=== PATIENT | female | born 1995 | race Hispanic/Latino ===

== ENCOUNTER 2021-02-10 11:55 | Emergency (ER) | payer OTHER ==
[~2021-02-10] VITALS: Ht 162.6 cm; Wt 72.6 kg
--- OUTSIDE RECORDS SUMMARY | 2021-02-10 12:02 | XMS ---
PreManage Notification: CHET GLASS Security Back Shoe Worker Events No recent Security Events currently on file CRITERIA MET - [facility] - 2 Visits in 30 Days CARE PROVIDERS There are no care providers on record at this time. Nia has no Care Guidelines for this patient. Mera VISIT COUNT (12 MO.) 1 [facility] 1 [facility] NOTE: Visits indicate total known visits. ED/UCC VISIT TRACKING (12 MO.) 02/10/2021 11:56 [facility] [place] [facility] COMPLAINT: - MEDICAL CLEARANCE 02/09/2021 10:06 [facility] [place] TYPE: Emergency DIAGNOSES: - Encounter for issue of repeat prescription - anxiety INPATIENT VISIT TRACKING (12 MO.) No inpatient visits to display in this time frame [id number]
[2021-02-10] MEDS ORDERED: CITALOPRAM HBR20 MG PO (12:12)
--- NOTE | 2021-02-11 21:26 | EKG ---
[facility] [address] [place], [place] [address] Signed Normal sinus rhythm Left posterior fascicular block Cannot rule out Inferior infarct , age undetermined Abnormal ECG No previous ECGs available Confirmed by BETTY CROOKS DO ([id number]) on 02/11/2021 9:26:37 PM Electronically Signed By: BETTY CROOKS DO 02/11/212125 PATIENT NAME: CHET GLASS Electrocardiogram DATE OF : [birth year] PHYSICIAN: BETTY CROOKS DO REPORT #: [id number] REPORT IS CONFIDENTIAL AND NOT TO BE RELEASED WITHOUT AUTHORIZATION
== END 2021-02-10 20:20 | disposition short-term general hospital (02) ==
LOC: ED 11:55
DX: Z00.8 Encounter for other general examination (principal); Z20.822 Contact with and (suspected) exposure to COVID-19; Y90.0 Blood alcohol level of less than 20 mg/100 ml
CPT/HCPCS: 80053; 81001; 84443; 84703; 85025; 93005; 93010; 99284-25; C9803; G0480; U0003

== ENCOUNTER 2021-03-10 03:28 | Emergency (ER) | payer OTHER ==
[~2021-03-10] VITALS: Ht 162.6 cm; Wt 78.9 kg
[~2021-03-10 03:28] MED LIST: CITALOPRAM HBR20 MG PO
--- OUTSIDE RECORDS SUMMARY | 2021-03-10 03:36 | XMS ---
PreManage Notification: CHET GLASS Security Rubber Gasket Inspector Trimmer Events No recent Security Events currently on file CRITERIA MET - [facility] - Visits in 30 Days CARE PROVIDERS PHILOMENA MULTANI Physician Photoengraving Proofer Apprentice 02/11/2021-Current PHONE: [phone] Nia has no Care Guidelines for this patient. Mera VISIT COUNT (12 MO.) [address] TOTAL 3 NOTE: Visits indicate total known visits. ED/UCC VISIT TRACKING (12 MO.) 03/10/2021 03:29 [facility] [place] TYPE: Emergency COMPLAINT: - ANXIETY 02/10/2021 11:56 [facility] [place] TYPE: Emergency COMPLAINT: - MEDICAL CLEARANCE DIAGNOSES: - Encounter for other general examination - Blood alcohol level of less than 20 mg/100 ml 02/09/2021 10:06 [facility] [place] TYPE: Emergency DIAGNOSES: - Encounter for issue of repeat prescription - anxiety INPATIENT VISIT TRACKING (12 MO.) No inpatient visits to display in this time frame [id number]
[2021-03-10] MEDS ORDERED: HYDROXYZINE HCL50 MG PO (03:43)
[2021-03-10] MEDS ORDERED: OLANZAPINE10 MG PO (03:44)
== END 2021-03-10 04:01 | disposition home or self-care (01) ==
LOC: ED 03:28
DX: F41.9 Anxiety disorder, unspecified (principal); E11.9 Type 2 diabetes mellitus without complications; Z79.899 Other long term (current) drug therapy
CPT/HCPCS: 99283

== ENCOUNTER 2021-09-02 06:47 | Emergency (ER) | payer OTHER ==
[~2021-09-02] VITALS: Ht 162.6 cm; Wt 78.9 kg
[~2021-09-02 06:47] MED LIST changes: +HYDROXYZINE HCL50 MG PO; +OLANZAPINE10 MG PO
== END 2021-09-02 08:20 | disposition home or self-care (01) ==
LOC: ED 06:47
DX: S83.005A Unspecified dislocation of left patella, initial encounter (principal); X58.XXXA Exposure to other specified factors, initial encounter; E11.9 Type 2 diabetes mellitus without complications
CPT/HCPCS: 73560; 99283-25

== ENCOUNTER 2021-10-10 03:58 | Emergency (ER) | payer OTHER ==
[~2021-10-10] VITALS: Ht 162.6 cm; Wt 73.5 kg
[~2021-10-10 03:58] MED LIST changes: +ZYPREXA10 MG PO
--- OUTSIDE RECORDS SUMMARY | 2021-10-10 04:01 | XMS ---
PreManage Notification: CHET GLASS Security It Integration Architect Events No recent Security Events currently on file CRITERIA MET - [facility] - 2 Visits in 30 Days CARE PROVIDERS PHILOMENA MULTANI Physician Help Desk Engineer 02/11/2021-Current PHONE: [phone] Nia has no Care Guidelines for this patient. Mera VISIT COUNT (12 MO.) [address] TOTAL 7 NOTE: Visits indicate total known visits. ED/C VISIT TRACKING (12 MO.) 10/10/2021 03:58 [facility] [place] TYPE: Emergency COMPLAINT: - FALL 10/09/2021 08:24 [facility] [place] TYPE: Emergency DIAGNOSES: - Manic episode without psychotic symptoms, unspecified - MENTAL HEALTH 10/08/2021 11:37 [facility] [place] TYPE: Emergency COMPLAINT: - PANIC ATTACK DIAGNOSES: - Type 2 diabetes mellitus without complications - Bipolar disorder, unspecified - Anxiety disorder, unspecified 09/02/2021 06:48 [facility] [place] TYPE: Emergency COMPLAINT: - L KNEE PAIN DIAGNOSES: - Pain in left knee - Exposure to other specified factors, initial encounter - Type 2 diabetes mellitus without complications - Unspecified dislocation of left patella, initial encounter 03/10/2021 03:29 [facility] [place] TYPE: Emergency COMPLAINT: - ANXIETY DIAGNOSES: - Other long-term (current) drug therapy - Type 2 diabetes mellitus without complications - Anxiety disorder, unspecified 02/10/2021 11:[address] [facility] [place] TYPE: Emergency COMPLAINT: - MEDICAL CLEARANCE DIAGNOSES: - Encounter for other general examination - Blood alcohol level of less than 20 mg/100 ml - Impulsiveness - Unspecified behavioral syndromes associated with physiological disturbances and physical factors - Other abnormal findings in urine - Post-traumatic stress disorder, unspecified - Encounter for other administrative examinations - Left posterior fascicular block - Other long-term (current) drug therapy 02/09/2021 10:06 [facility] [place] TYPE: Emergency DIAGNOSES: - Encounter for issue of repeat prescription - anxiety INPATIENT VISIT TRACKING (12 MO.) No inpatient visits to display in this time frame [id number]
== END 2021-10-10 06:10 | disposition home or self-care (01) ==
LOC: ED 03:58
DX: S93.401A Sprain of unspecified ligament of right ankle, initial encounter (principal); E11.9 Type 2 diabetes mellitus without complications
CPT/HCPCS: 73610; G0480

== ENCOUNTER 2021-10-10 16:16 | Emergency (ER) | payer OTHER ==
[~2021-10-10] VITALS: Ht 162.6 cm; Wt 73.5 kg
--- OUTSIDE RECORDS SUMMARY | 2021-10-10 16:18 | XMS ---
PreManage Notification: CHET GLASS Security Termite Renewal Inspector Events No recent Security Events currently on file CRITERIA MET - [facility] - 2 Visits in 30 Days CARE PROVIDERS PHILOMENA MULTANI Physician Materials Scheduler 02/11/2021-Current PHONE: [phone] Nia has no Care Guidelines for this patient. Mera VISIT COUNT (12 MO.) [address] TOTAL 8 NOTE: Visits indicate total known visits. ED/UCC VISIT TRACKING (12 MO.) 10/10/2021 16:16 [facility] [place] TYPE: Emergency COMPLAINT: - ANXIETY 10/10/2021 03:58 [facility] [place] TYPE: Emergency COMPLAINT: - FALL 10/09/2021 08:24 [facility] [place] TYPE: Emergency DIAGNOSES: - Manic episode without psychotic symptoms, unspecified - MENTAL HEALTH 10/08/2021 11:37 [facility] [place] TYPE: Emergency COMPLAINT: - PANIC ATTACK DIAGNOSES: - Type 2 diabetes mellitus without complications - Bipolar disorder, unspecified - Anxiety disorder, unspecified 09/02/2021 06:[address] [facility] [place] TYPE: Emergency COMPLAINT: - L KNEE PAIN DIAGNOSES: - Pain in left knee - Exposure to other specified factors, initial encounter - Type 2 diabetes mellitus without complications - Unspecified dislocation of left patella, initial encounter 03/10/2021 03:[address] [facility] [place] TYPE: Emergency COMPLAINT: - ANXIETY DIAGNOSES: - Other meterman (current) drug therapy - Type 2 diabetes mellitus without complications - Anxiety disorder, unspecified 02/10/2021 11:[address] [facility] [place] DonyaSonya Whitman [place] TYPE: Emergency COMPLAINT: - MEDICAL CLEARANCE DIAGNOSES: - Encounter for other general examination - Blood alcohol level of less than 20 mg/100 ml - Impulsiveness - Unspecified behavioral syndromes associated with physiological disturbances and physical factors - Other abnormal findings in urine - Post-traumatic stress disorder, unspecified - Encounter for other administrative examinations - Left posterior fascicular block - Other meterman (current) drug therapy 02/09/2021 10:06 [facility] [place] TYPE: Emergency DIAGNOSES: - Encounter for issue of repeat prescription - anxiety INPATIENT VISIT TRACKING (12 MO.) No inpatient visits to display in this time frame [id number]
== END 2021-10-10 16:57 | disposition home or self-care (01) ==
LOC: ED 16:16
DX: F31.9 Bipolar disorder, unspecified (principal); E11.9 Type 2 diabetes mellitus without complications; Z79.899 Other long term (current) drug therapy
CPT/HCPCS: 99283

== ENCOUNTER 2021-10-15 13:26 | Emergency (ER) | payer OTHER ==
[~2021-10-15] VITALS: Ht 162.6 cm; Wt 74.8 kg
--- OUTSIDE RECORDS SUMMARY | 2021-10-15 13:28 | XMS ---
PreManage Notification: CHET GLASS Security Roll Line Operator Events No recent Security Events currently on file CRITERIA MET - 6 ED Visits in [address] - [facility] - 2 Visits in 30 Days CARE PROVIDERS PHILOMENA MULTANI Physician Tractor Operator Laser Leveling 02/11/2021-Current PHONE: [phone] Nia has no Care Guidelines for this patient. Mera VISIT COUNT (12 MO.) [address] TOTAL 9 NOTE: Visits indicate total known visits. ED/UCC VISIT TRACKING (12 MO.) 10/15/2021 13:26 [facility] [place] TYPE: Emergency COMPLAINT: - MEDICAL CLEARANCE 10/10/2021 16:16 [facility] [place] TYPE: Emergency COMPLAINT: - ANXIETY DIAGNOSES: - Type 2 diabetes mellitus without complications - Other usp (current) drug therapy - Bipolar disorder, unspecified - Anxiety disorder, unspecified 10/10/2021 03:58 [facility] [place] TYPE: Emergency COMPLAINT: - FALL DIAGNOSES: - Pain in right ankle and joints of right foot - Sprain of unspecified ligament of right ankle, initial encounter - Type 2 diabetes mellitus without complications 10/09/2021 08:24 [facility] [place] TYPE: Emergency DIAGNOSES: - Manic episode without psychotic symptoms, unspecified - MENTAL HEALTH 10/08/2021 11:37 [facility] [place] TYPE: Emergency COMPLAINT: - PANIC ATTACK DIAGNOSES: - Type 2 diabetes mellitus without complications - Bipolar disorder, unspecified - Anxiety disorder, unspecified 09/02/2021 06:48 [facility] [place] TYPE: Emergency COMPLAINT: - L KNEE PAIN DIAGNOSES: - Pain in left knee - Exposure to other specified factors, initial encounter - Type 2 diabetes mellitus without complications - Unspecified dislocation of left patella, initial encounter 03/10/2021 03:29 [facility] [place] TYPE: Emergency COMPLAINT: - ANXIETY DIAGNOSES: - Other usp (current) drug therapy - Type 2 diabetes mellitus without complications - Anxiety disorder, unspecified 02/10/2021 11:56 [facility] [place] TYPE: Emergency [...] - Left posterior fascicular block - Other usp (current) drug therapy 02/09/2021 10:06 [facility] [place] TYPE: Emergency DIAGNOSES: - Encounter for issue of repeat prescription - anxiety INPATIENT VISIT TRACKING (12 MO.) No inpatient visits to display in this time frame [email or web address]
[2021-10-15] MEDS ORDERED: HYDROXYZINE HCL10 MG PO (15:13)
[2021-10-15] MEDS ORDERED: ZYPREXA10 MG PO (15:15)
== END 2021-10-16 12:22 | disposition home or self-care (01) ==
LOC: ED 13:26
DX: F31.9 Bipolar disorder, unspecified (principal); E11.9 Type 2 diabetes mellitus without complications; Z79.899 Other long term (current) drug therapy; Z20.822 Contact with and (suspected) exposure to COVID-19
CPT/HCPCS: 36415; 80053; 81001; 84443; 84703; 85025; 99284; A9270; G0480; U0003

== ENCOUNTER 2023-03-22 14:19 | Emergency (ER) | payer OTHER ==
[~2023-03-22] VITALS: Ht 162.6 cm; Wt 71.7 kg
--- OUTSIDE RECORDS SUMMARY | ~2023-03-22 | XMS | Continuity of Care Document ---
Demographics + + + | Address | [address] | | | [place] [address] | + + + | Preferred Language | Unknown | + + + | Marital Status | Never | + + + | Latter-Day Affiliation | Unknown | + + + | Race | Unknown | + + + | Ethnic Group | Unknown | + + + Author + + + | Author | [facility] | + + + | Organization | [facility] | + + + | Address | [address] | | | [place] [address] | + + + | Phone | | + + + Care Team Providers + + + + | Care Take Out Waiter Name | Role | Phone | + [...] 00:00 | quetiapine 25 MG Oral | [facility] | | | Tablet | | + + + + | 2023-01-03 00:00 | QUEtiapine Fumarate 25 MG | [facility] | | | Oral Tablet | | + + + + Problems + + + + | date | description | facility | + + + + | 2022-12-22 00:00 | Lumbago with sciatica | [facility] | | | (disorder) | | + + + + | 2022-12-22 00:00 | Scoliosis deformity of | [facility] | | | spine (disorder) | | + + + + | 2022-12-22 00:00 | SCIATICA | [facility] | | | | | + + + + | 2022-12-22 00:00 | SCOLIOSIS,OTHER | [facility] | | | | | + + + + | 2022-12-22 00:00 | Scoliosis | [facility] | | | | | + + + + | 2022-12-22 00:00 | Lumbago with Sciatica | [facility] | | | | | + + + + Procedures + + + + | date | description | facility | + + + + | 2023-02-15 00:00 | Collection/Conveyance | [facility] | | | Screening Pap | | [...] | | | | | | | Alexis [facility]. | | | | + + + [...] | | | | | | | [facility] | | | | + + + +--------+ + + | | 2023-02-15 | [facility] | 10.8 | (missing) | (missing) | | BUN/CREAT.RA | 15:51 | MEDICAL | | | | | HUNTER | | [facility]ene [facility] | | | | + + + +--------+ + + | GFR | 2023-02-15 | [facility] | 115 | ml/min | (missing) | | ESTIMATION | 15:51 | MEDICAL | | | | | | | D[facility]ene [facility] | | | | + + + [...] Detected | | | | | | [facility] | | | | + + + + + + + | N. | 2023-02-15 | [facility] | None | (missing) | (missing) | | GONORRHEA | 00:00 | MEDICAL | Detected | | | | | | GROUP [...] | | | | | | | Piotr [facility]. | | | | + + + +--------+--------+ + | RBC | 2023-02-15 | [facility] | 4.61 | M/ul | (missing) | | | 15:51 | MEDICAL | | | | | | | Piotr [facility]. | | | | + + + +--------+--------+ + Social History + + + + | date | description | facility | + + + + | 2022-12-22 00:00 | Unknown if ever smoked | [facility] | | | | | + + + + | 2022-12-22 00:00 | [facility]-sm[facility] (finding) | [facility] | | | | | + + + + | 2023-02-15 00:00 | Unknown if ever smoked | [facility] | | | | | + + + + | 2023-02-15 00:00 | Ex-smoker (finding) | [facility] | | | | | + + + + | 2023-02-23 00:00 | Unknown if ever smoked | [facility] | | | | | + + + + | 2023-02-23 00:00 | Ex-smoker (finding) | [facility] | | | | | + + + + Vital Signs + + + + + | date | measurement | value | units | + + + + + | 2022-12-22 00:00 | BMI | 28.4 | 1 | + + + + + | 2022-12-22 00:00 | BP_diastolic | 76 | mmHg | + + + + + | 2022-12-22 00:00 | BP_systolic | 120 | mmHg | + + + + + | 2022-12-22 00:00 | BSA | 1.8 | 1 | + + + + + | 2022-12-22 00:00 | heart_rate | 56 | /min | + + + + + | 2022-12-22 00:00 | height_metric | 162.56 | cm | + + + + + | 2022-12-22 00:00 | height_standard | 64 | in | + + + + + | 2022-12-22 00:00 | o2_saturation | 98 | % | + + + + + | 2022-12-22 00:00 | respiration_rate | 16 | /min | + + + + + | 2022-12-22 00:00 | temperature_metric | 36.61 | C | | | | | | + + + + + | 2022-12-22 00:00 | | 97.9 | F | | | temperature_standar | | | | | d | | | + + + + + | 2022-12-22 00:00 | weight_metric | 75.01 | kg | + + + + + | 2022-12-22 00:00 | weight_standard | 165.38 | lb | + + + + + | [...]
[~2023-03-22 14:19] MED LIST changes: +CAPLYTA21 MG PO; +HYDROXYZINE HCL10 MG PO; +LURASIDONE HCL20 MG PO; +QUETIAPINE FUM300 MG PO; +QUETIAPINE FUMA25 MG PO
[2023-03-22] MEDS ORDERED: TRAZODONE HCL50 MG PO (14:47)
[2023-03-22] MEDS ORDERED: VISTARIL25 MG PO (14:47)
[2023-03-22 15:02] VITALS: BP 141/92
== END 2023-03-22 15:05 | disposition home or self-care (01) ==
LOC: ED 14:19
DX: F31.9 Bipolar disorder, unspecified (principal); E11.9 Type 2 diabetes mellitus without complications; Z79.899 Other long term (current) drug therapy
CPT/HCPCS: 99283; Q0177

== ENCOUNTER 2023-03-23 14:10 | Emergency (ER) | payer OTHER ==
[~2023-03-23] VITALS: Ht 162.6 cm; Wt 71.9 kg
--- OUTSIDE RECORDS SUMMARY | ~2023-03-23 | XMS | Continuity of Care Document ---
Demographics + + + | Address | [address] | | | [place] [address] | + + + | Preferred Language | Unknown | + + + | Marital Status | Never | + + + | Amish Affiliation | Unknown | + + + | Race | Unknown | + + + | Ethnic Group | or | + + + Author + + + | Author | [facility] | + + + | Organization | [facility] | + + + | Address | [address] | | | [place] [address] | + + + | Phone | | + + + Care Team Providers + + + + | Care Computer Assembler Name | Role | Phone | + + + + Unavailable | Unavailable | + + + + Unavailable | Unavailable | + + + + Allergies No information. Encounters No information. Functional Status No information. Immunizations No information. Medications + + + + | date | description | facility | + + + + | 2023-01-03 00:00 | quetiapine 25 MG Oral | [facility] | | | Tablet | | + + + + | 2023-01-03 00:00 | QUEtiapine Fumarate 25 MG | [facility] | | | Oral Tablet | | + + + + Problems No information. Procedures + + + + | date | description | facility | + + + + | 2023-02-15 00:00 | Collection/Conveyance | [facility] | | | Screening Pap | | + + + + Results/Labs +--------+--------+ +---------+--------+---------+ | test | date | facility | value | unit | notes | +--------+--------+ +---------+--------+---------+ + + | TREPONEMAL AB TOT | + + + + + + + + + | TREPONEMAL | 2023-02-15 | [facility] | | (missing) | (missing) | | AB TOT | 15:51 | [facility] | NON-REACTIVE | | | | | | [facility] | | | | + + + + + + + + + | LIPID PANEL | + + + + + +--------+ + + | VLDL | 2023-02-15 | [facility] | 32 | mg/dL | (missing) | | | 15:51 | [facility] | | | | + + + +--------+ + + | LDL | 2023-02-15 | [facility] | 107 | mg/dL | (missing) | | | 15:51 | [facility] | | | | | | [facility] | | | | + + + +--------+ + + | HDL | 2023-02-15 | [facility] | 45.7 | mg/dL | (missing) | | | 15:51 | [facility] | | | | | | [facility] | | | | + + + +--------+ + + | CHOLESTEROL | 2023-02-15 | [facility] | 185 | mg/dL | (missing) | | | 15:51 | [facility] | | | | | | | [facility] | | | | + + + +--------+ + + | | 2023-02-15 | [facility] | 162 | mg/dL | (missing) | | TRIGLYCERIDE | 15:51 | [facility] | | | | | S | | [facility] | | | | + + + +--------+ + + | NON-HDL | 2023-02-15 | [facility] | 139 | mg/dL | (missing) | | CHOL | 15:51 | [facility] | | | | | | | [facility] | | | | + + + +--------+ + + | CHOL/HDL | 2023-02-15 | [facility] | 4.0 | (missing) | (missing) | | | 15:51 | [facility] | | | | | | [facility] | | | | + + + +--------+ + + + + | FREE T4/TSH | + + + + + +---------+ + + | TSH, 3rd | 2023-02-15 | [facility] | 1.290 | uIU/ml | (missing) | | GEN. | 15:51 | [facility] | | | | | | | [facility] | | | | + + + +---------+ + + | FREE T4 | 2023-02-15 | [facility] | 1.01 | ng/dl | (missing) | | | 15:51 | [facility] | | | | | | | [facility] | | | | + + + +---------+ + + + + | COMPREHENSIVE METABOLIC PANEL | + + + + + +--------+ + + | GLOBULIN | 2023-02-15 | [facility] | 2.8 | g/dl | (missing) | | | 15:51 | [facility] | | | | | | | [facility] | | | | + + + +--------+ + + | ALKALINE | 2023-02-15 | [facility] | 69 | U/L | (missing) | | PHOS | 15:51 | [facility] | | | | | | | [facility] | | | | + + + +--------+ + + | ALT(SGPT) | 2023-02-15 | [facility] | 15 | U/L | (missing) | | | 15:51 | [facility] | | | | | | | [facility] | | | | + + + +--------+ + + | ALBUMIN | 2023-02-15 | [facility] | 4.7 | g/dl | (missing) | | | 15:51 | [facility] | | | | | | | [facility] | | | | + + + +--------+ + + | A/G RATIO | 2023-02-15 | [facility] | 1.7 | (missing) | (missing) | | | 15:51 | [facility] | | | | | | | [facility] | | | | + + + +--------+ + + | CALCIUM | 2023-02-15 | [facility] | 9.9 | mg/dL | (missing) | | | 15:51 | [facility] | | | | | | | [facility] | | | | + + + +--------+ + + | ANION GAP | 2023-02-15 | [facility] | 12.8 | (missing) | (missing) | | | 15:51 | [facility] | | | | | | | [facility] | | | | + + + +--------+ + + | AST(SGOT) | 2023-02-15 | [facility] | 15 | U/L | (missing) | | | 15:51 | [facility] | | | | | | | [facility] | | | | + + + +--------+ + + | BILIRUBIN, | 2023-02-15 | [facility] | 0.25 | mg/dL | (missing) | | TOTAL | 15:51 | [facility] | | | | | | | [facility] | | | | + + + +--------+ + + | CARBON | 2023-02-15 | [facility] | 25 | meq/L | (missing) | | DIOXIDE | 15:51 | [facility] | | | | | | | [facility] | | | | + + + +--------+ + + | CHLORIDE | 2023-02-15 | [facility] | 106 | meq/L | (missing) | | | 15:51 | [facility] | | | | | | | [facility] | | | | + + + +--------+ + + | CREATININE, | 2023-02-15 | [facility] | 0.74 | mg/dL | (missing) | | SERUM | 15:51 | [facility] | | | | | | | [facility] | | | | + + + +--------+ + + | GLUCOSE | 2023-02-15 | [facility] | 97 | mg/dL | (missing) | | | 15:51 | [facility] | | | | | | | [facility] | | | | + + + +--------+ + + | POTASSIUM | 2023-02-15 | [facility] | 3.8 | meq/L | (missing) | | | 15:51 | [facility] | | | | | | | [facility] | | | | + + + +--------+ + + | PROTEIN | 2023-02-15 | [facility] | 7.5 | g/dL | (missing) | | | 15:51 | [facility] | | | | | | | [facility] | | | | + + + +--------+ + + | SODIUM | 2023-02-15 | [facility] | 140 | meq/L | (missing) | | | 15:51 | [facility] | | | | | | | [facility] | | | | + + + +--------+ + + | UREA | 2023-02-15 | [facility] | 8 | mg/dL | (missing) | | NITROGEN | 15:51 | [facility] | | | | | | | [facility] | | | | + + + +--------+ + + | | 2023-02-15 | [facility] | 10.8 | (missing) | (missing) | | BUN/CREAT.RA | 15:51 | [facility] | | | | | [facility] | | [facility] | | | | + + + +--------+ + + | GFR | 2023-02-15 | [facility] | 115 | ml/min | (missing) | | ESTIMATION | 15:51 | [facility] | | | | | | | [facility] | | | | + + + +--------+ + + + + | IRON AND TOTAL IRON BINDING | + + + + + + +---------+ + | IRON | 2023-02-15 | [facility] | 87.01 | ug/dL | (missing) | | | 15:51 | [facility] | | | | | | | [facility] | | | | + + + + +---------+ + | TIBC | 2023-02-15 | [facility] | 457 | ug/dL | (missing) | | | 15:51 | [facility] | | | | | | | [facility] | | | | + + + + +---------+ + | % | 2023-02-15 | [facility] | 19.0 | % | (missing) | | SATURATION | 15:51 | [facility] | | | | | | | [facility] | | | | + + + + +---------+ + | TRANSFERRIN | 2023-02-15 | [facility] | 326.64 | mg/dL | (missing) | | | 15:51 | [facility] | | | | | | | [facility] | | | | + + + + +---------+ + + + | VITAMIN D 25-OH | + + + + + +------+---------+ + | VITAMIN D | 2023-02-15 | [facility] | 26 | ng/mL | (missing) | | 25-OH | 15:51 | [facility] | | | | | | | [facility] | | | | + + + +------+---------+ + + + | N.KENRICK./CHLAMYDIA/TRICHOMONAS R | + + + + + + + + + | CHLAMYDIA | 2023-02-15 | [facility] | None | (missing) | (missing) | | | 00:00 | [facility] | Detected | | | | | | [facility] | | | | + + + + + + + | N. | 2023-02-15 | [facility] | None | (missing) | (missing) | | GONORRHEA | 00:00 | [facility] | Detected | | | | | | , [facility] | | | | + + + + + + + | TESTING | 2023-02-15 | [facility] | See Note | (missing) | (missing) | | COMMENT | 00:00 | [facility] | | | | | | | [facility] | | | | + + + + + + + | TRICHOMONAS | 2023-02-15 | [facility] | None | (missing) | (missing) | | | 00:00 | [facility] | Detected | | | | | | [facility] | | | | + + + + + + + + + | HIV 1+2 Ab/Ag | + + + + + + + + + | HIV 1+2 | 2023-02-15 | [facility] | | (missing) | (missing) | | Ab/Ag | 15:51 | MED[facility] | NON-REACTIVE | | | | | | [facility] | | | | + + + + + + + +-------+ | CBC | +-------+ + + + +--------+--------+ + | HEMOGLOBIN | 2023-02-15 | [facility] | 13.9 | g/dl | (missing) | | | 15:51 | [facility] | | | | | | | [facility] | | | | + + + +--------+--------+ + | RDW | 2023-02-15 | [facility] | 12.3 | % | (missing) | | | 15:51 | [facility] | | | | | | | [facility] | | | | + + + +--------+--------+ + | HEMATOCRIT | 2023-02-15 | [facility] | 41.4 | % | (missing) | | | 15:51 | [facility] | | | | | | | [facility] | | | | + + + +--------+--------+ + | MONOCYTES | 2023-02-15 | [facility] | 5.7 | % | (missing) | | | 15:51 | [facility] | | | | | | | [facility] | | | | + + + +--------+--------+ + | WBC | 2023-02-15 | [facility] | 8.4 | K/ul | (missing) | | | 15:51 | [facility] | | | | | | | [facility] | | | | + + + +--------+--------+ + | BASOPHILS | 2023-02-15 | [facility] | 0.2 | % | (missing) | | | 15:51 | [facility] | | | | | | | [facility] | | | | + + + +--------+--------+ + | EOSINOPHILS | 2023-02-15 | [facility] | 0.0 | % | (missing) | | | 15:51 | [facility] | | | | | | | [facility] | | | | + + + +--------+--------+ + | LYMPHOCYTES | 2023-02-15 | [facility] | 29.9 | % | (missing) | | | 15:51 | [facility] | | | | | | | [facility] | | | | + + + +--------+--------+ + | NEUTROPHILS | 2023-02-15 | [facility] | 64.2 | % | (missing) | | | 15:51 | [facility] | | | | | | | [facility] | | | | + + + +--------+--------+ + | PLATELET | 2023-02-15 | [facility] | 281 | K/ul | (missing) | | COUNT | 15:51 | [facility] | | | | | | | [facility] | | | | + + + +--------+--------+ + | MCH | 2023-02-15 | [facility] | 30 | pg | (missing) | | | 15:51 | [facility] | | | | | | | [facility] | | | | + + + +--------+--------+ + | MCHC | 2023-02-15 | [facility] | 34 | g/dL | (missing) | | | 15:51 | [facility] | | | | | | | [facility] | | | | + + + +--------+--------+ + | MCV | 2023-02-15 | [facility] | 89.9 | fl | (missing) | | | 15:51 | [facility] | | | | | | | [facility] | | | | + + + +--------+--------+ + | RBC | 2023-02-15 | [facility] | 4.61 | M/ul | (missing) | | | 15:51 | [facility] | | | | | | | [facility] | | | | + + + +--------+--------+ + Social History + + + + | date | description | facility | + + + + | 2023-02-15 00:00 | Unknown if ever smoked | [facility] | | | | | + + + + | 2023-02-15 00:00 | Ex-smoker (finding) | [facility] | | | | | + + + + | 2023-02-23 00:00 | Unknown if ever smoked | [facility] | | | | | + + + + | 2023-02-23 00:00 | Ex-smoker (finding) | [facility] | | | | | + + + + Vital Signs + + + + + | date | measurement | value | units | + + + + + | 2023-02-15 00:00 | BMI | 29 | 1 | + + + + + | 2023-02-15 00:00 | BP_diastolic | 80 | mmHg | + + + + + | 2023-02-15 00:00 | BP_systolic | 118 | mmHg | + + + + + | 2023-02-15 00:00 | BSA | 1.8 | 1 | + + + + + | 2023-02-15 00:00 | Pain_Level | 0 | 1 | + + + + + | 2023-02-15 00:00 | heart_rate | 1|1| | completed | + + + + + | 2023-02-15 00:00 | heart_rate | 78 | /min | + + + + + | 2023-02-15 00:00 | height_metric | 162.56 | cm | + + + + + | 2023-02-15 00:00 | height_standard | 64 | in | + + + + + | 2023-02-15 00:00 | o2_saturation | 99 | % | + + + + + | 2023-02-15 00:00 | respiration_rate | 17 | /min | + + + + + | 2023-02-15 00:00 | temperature_metric | 36.56 | C | | | | | | + + + + + | 2023-02-15 00:00 | | 97.8 | F | | | temperature_standar | | | | | d | | | + + + + + | 2023-02-15 00:00 | weight_metric | 76.66 | kg | + + + + + | 2023-02-15 00:00 | weight_standard | 169 | lb | + + + + +"
[~2023-03-23 14:10] MED LIST changes: +TRAZODONE HCL50 MG PO; +VISTARIL25 MG PO
--- OUTSIDE RECORDS SUMMARY | 2023-03-23 14:18 | XMS ---
PreManage Notification: CHET GLASS Security Vision Mixer Events No recent Security Events currently on file CRITERIA MET - [facility] - 2 Visits in 30 Days CARE PROVIDERS FABIO NORTON Community Health Worker 11/04/2021-Current PHONE: [phone] PHILOMENA MULTANI Physician Delinquency Counselor 02/11/2021-Current PHONE: Unknown -Nathaniel- Dentist: Yardage Control Operator [facility] PHONE: [phone] Cassi Dickey Nurse Practitioner: Family Current PHONE: [phone] Nia has no Care Guidelines for this patient. Mera VISIT COUNT (12 MO.) 3 JES[facility]S Hi ) TOTAL 4 NOTE: Visits indicate total known visits. ED/UCC VISIT TRACKING (12 MO.) 03/23/2023 14:11 [facility] [place] TYPE: Emergency COMPLAINT: - MEDICAL CLEARANCE 03/22/2023 14:20 [facility] TYPE: Emergency COMPLAINT: - UNABLE TO SLEEP, ANXIETY 10/09/2022 12:54 [facility] TYPE: Emergency COMPLAINT: - SUICIDAL IDEATIONS DIAGNOSES: - Bipolar disorder, unspecified - Contact with and (suspected) exposure to COVID-19 - Other emt intermediate (current) drug therapy - Suicidal ideations - Type 2 diabetes mellitus without complications 09/29/2022 23:26 Demetrius LEONARD [place] ([facility]) TYPE: Emergency DIAGNOSES: - Acute stress reaction - Anxiety INPATIENT VISIT TRACKING (12 MO.) 10/11/2022 09:48 [facility] TYPE: Behavioral Health DIAGNOSES: - Bipolar disorder, unspecified [id number]
[2023-03-23 14:45] LABS: BASOPHILS 0.3 % (0-2); HEMOGLOBIN 12.9 g/dL (12.0-18.0); LYMPHOCYTES 19.3 % (24-44); MCH 29.2 (27-36); MCHC 33.1 g/dl (30-36); MCV 88.1 fl (81-99); MONOCYTES 8.3 % (0-12); NEUTROPHILS 72.1 % (39-80); PLATELET COUNT 273 K/uL (140-440); RBC 4.43 M/ul (4.3-5.7); RDW 12.7 (10.5-15.0)
[2023-03-23 15:07] LABS: BILIRUBIN, URINE NEGATIVE (negative); BLOOD/HGB, URINE SMALL (Negative); KETONE, URINE SMALL (Negative); LEUK ESTERASE, URINE NEGATIVE (negative); NITRITE, URINE NEGATIVE (negative)
[2023-03-23 15:10] LABS: AMPHETAMINES, UR NEGATIVE (NEGATIVE); BARBITURATES, UR NEGATIVE (NEGATIVE); BENZODIAZEPINES, UR NEGATIVE (NEGATIVE); BUPRENORPHINE,UR NEGATIVE (NEGATIVE); COCAINE, UR NEGATIVE (NEGATIVE); MARIJUANA (THC), UR NEGATIVE (NEGATIVE); MDMA, UR NEGATIVE (NEGATIVE); METHADONE, UR NEGATIVE (NEGATIVE); METHAMPHETAMINE, UR NEGATIVE (NEGATIVE); OPIATES, UR NEGATIVE (NEGATIVE); OXYCODONE, UR NEGATIVE (NEGATIVE); PHENCYCLIDINE, UR NEGATIVE (NEGATIVE); TRICYCLIC ANTIDEPRESSANT, UR NEGATIVE (NEGATIVE)
[2023-03-23 15:10] LABS: ACETAMINOPHEN 0 ug/mL (10-30); ALBUMIN 4.4 g/dL (3.4-5.0); ALBUMIN/GLOBULIN RATIO 1.29 (1.1-2.4); ALCOHOL, MEDICAL <3 ng/dL (<3); ALKALINE PHOSPHATASE 73 U/L (46-116); ALT (SGPT) 27 U/L (14-59); ANION GAP 14.2 (7-21); AST (SGOT) 37 U/L (15-37); BILIRUBIN, TOTAL 0.5 ng/dL (0.2-1.0); BUN/CREATININE RATIO 7.86 (6.0-28.6); CALCIUM 8.8 mg/dL (8.5-10.1); CARBON DIOXIDE 26 mmol/L (21-32); CHLORIDE 101 mmol/L (98-107); CREATININE, SERUM 0.89 mg/dL (0.55-1.02); GLOMERULAR FILTRATION RATE,EST 92 mL/min (>60); POTASSIUM 3.2 mmol/L (3.5-5.1); PROTEIN, TOTAL 7.8 g/dL (6.4-8.2); SALICYLATE 0.7 mg/dL (2.8-20.0); TSH, 3RD GENERATION 1.048 uIU/mL (0.358-3.740); UREA NITROGEN 7 mg/dL (7-18)
[2023-03-23 15:15] LABS: BACTERIA, URINE NONE SEEN /hpf (negative); CASTS, URINE NONE SEEN \\lpf; COLLECTION TYPE, URINE CLEAN CATCH; CRYSTALS, URINE NONE SEEN (0-1+); EPITHELIAL CELLS, URINE 0 /lpf (0-1+); RED BLOOD CELLS, URINE 0-1 /hpf (0-5); REFLEX CULTURE, URINE No (No)
[2023-03-23 16:00] VITALS: BP 140/80
== END 2023-03-23 16:00 | disposition home or self-care (01) ==
LOC: ED 14:10
PROVIDERS: Emergency Medicine
DX: F31.9 Bipolar disorder, unspecified (principal); Z79.899 Other long term (current) drug therapy
CPT/HCPCS: 36415; 80053; 80307; 81001; 84443; 84703; 85025; G0480

== ENCOUNTER 2023-10-19 10:12 | Emergency (ER) | payer OTHER ==
[~2023-10-19] VITALS: Ht 162.6 cm; Wt 83.3 kg
[2023-10-19] MEDS ORDERED: QUETIAPINE FUM400 MG PO (10:31)
[2023-10-19] MEDS ORDERED: OLANZAPINE10 MG PO (10:31)
[2023-10-19] MEDS ORDERED: HYDROXYZINE HCL50 MG PO (10:31)
[2023-10-19] MEDS ORDERED: PALIPERIDONE ER9 MG PO (10:31)
[2023-10-19 10:50] VITALS: BP 142/96
== END 2023-10-19 10:50 | disposition home or self-care (01) ==
LOC: ED 10:12
DX: F31.9 Bipolar disorder, unspecified (principal); E11.9 Type 2 diabetes mellitus without complications; Z79.899 Other long term (current) drug therapy
CPT/HCPCS: 99283